=== PATIENT | female | born 1965 | race Caucasian/White ===

== ENCOUNTER 2019-03-15 17:04 | Emergency (ER) | payer MEDICAID, SELFPAY ==
[2019-03-15 17:05] VITALS: BP 158/96; PULSE 99; RESP 16; TEMP 36.6; O2SAT 99; BMI 35.4
--- NOTE | 2019-03-15 17:22 | ED.VIS.GEN ---
History of Present Illness Chief Complaint: Laceration Informant: Patient Onset: Today Current Severity: Mild Maximum Severity: Mild Narrative: Patient was using the palm of her hand to try to drive a butter knife between 2 frozen hamburger patties. She had a kitchen tile over the end of the knife. She suffered a laceration to the palm of her hand. She states she was just not take care of at home but knew that she needed a tetanus update so she came in for evaluation. She has [id number]. She denies paresthesias or weakness. - Past Medical History (1) Bipolar disorder Status: Chronic (2) PTSD (post-traumatic stress disorder) Status: Chronic Past Medical History - Allergies and Home Meds Allergies/Adverse Reactions: Allergies lamotrigine [From Lamictal] Allergy (Verified 03/15/19 17:06) Rash cephalexin monohydrate [From Keflex] Adverse Reaction (Verified 03/15/19 17:06) Other Prior records reviewed: Yes Lives: Alone Smoking Status: Current every day smoker Review of Systems General: Denies: Chills, Fever ENT: Denies: Bilateral ear pain Cardiovascular: Denies: Chest pain Respiratory: Denies: Dyspnea Gastrointestinal: Denies: Abdominal pain Musculoskeletal: Reports: Extremity Pain Skin: Reports: Wounds Neurological: Denies: Weakness, Parasthesia, Numbness Allergy: Denies: Uticaria Physical Exam Vital Signs/Narrative: Vital Signs Temp Pulse Resp BP Pulse Ox 03/15/19 17:05 98 F 99 16 158/96 H 99 Inital Vital Signs reviewed: Yes General: Well nourished, Well developed Head: Normocephalic ENT: Moist mucous membranes Neck: Supple Cardiovascular: Regular rate, Regular rhythm Respiratory: No distress, CTA bilaterally Abdomen: Soft, Nontender Extremities: - - Patient has a 1 cm long superficial laceration to the palm of her right hand. No active bleeding noted at this time. Normal neuro exam. Neurological: Normal Strength, Normal Sensation Psychological: Normal affect Diagnostic/Tx/Re-eval - Medical Decision Making Patient would prefer not to have stitches. She literally only has a laceration to the most superficial layer of skin. Wound is cleansed and closed with Dermabond. Tetanus update will be provided. ED Disposition - Plan for ED Patient: Disposition: Home or Assisted Living Diagnosis: Laceration of hand Instructions: LACERATION, Extremity (Skin Glue) Prescriptions: Acetaminophen [Tylenol Extra Strength] 500 - 1,000 mg PO Q6H PRN PRN #30 tablet PRN Reason: Pain Score 4-10/10
[2019-03-15] MEDS: Diphth,Pertuss(Acell),Tet Vac 0.5 ML Vial IM (17:31)
--- NOTE | 2019-03-17 14:35 | ED.RN ---
Pt called and requested a new rx for pain stating the tylenol was not helping. Dr Massey gave verbal order to call in Ibuprofem 600mg x1 q6hr # 20. Called to [facility].
== END 2019-03-15 17:49 | disposition home or self-care (01) ==
LOC: ED 17:28
PROVIDERS: Emergency Provider Emergency Medicine
DX: S61.411A Laceration without foreign body of right hand, initial encounter (principal); W26.0XXA Contact with knife, initial encounter; Y93.G1 Activity, food preparation and clean up; Y92.009 Unspecified place in unspecified non-institutional (private) residence as the place of occurrence of the external cause; F31.9 Bipolar disorder, unspecified; F43.10 Post-traumatic stress disorder, unspecified; F17.200 Nicotine dependence, unspecified, uncomplicated
CPT/HCPCS: 90471; 90715; 99282

== ENCOUNTER → 2019-12-22 09:08 | Outpatient (CLI) | payer MEDICAID, SELFPAY ==
[2019-12-22 09:51] LABS: Absolute Lymphocyte Count 2.46 X10^3/uL (0.83-4.51); Absolute Neutrophil Count 4.9 X10^3/uL (2.0-7.7); Basophil# 0.07 X10^3/uL; Basophil% 0.9 % (0-1); Eosinophils% 1.2 % (0-5); Hematocrit 41.1 % (37-47); Hemoglobin 12.7 g/dL (12.0-15.0); Lymphocyte # 2.46 X10^3/ul (4.0); Lymphocyte % 30.7 % (19-41); Mean Corp Hgb Conc 30.9 g/dL (32-36); Mean Corpuscular Hgb 26.6 pg (27.0-32.0); Mean Corpuscular Volume 86.2 fL (81-99); Mean Platelet Vol. 11.3 fl (6.2-12.0); Monocyte# 0.46 X10^3/uL; Monocyte% 5.7 % (0-10); NRBC Flagged by Analyzer 0 % (0-5); Neutrophil # 4.92 X10^3/uL (2.7-7.7); Neutrophil % 61.4 % (47-70); Platelet Count 278 K/mm3 (150-450); RBC Distribution Width CV 15.3 % (11.6-14.6); RBC Distribution Width SD 48.4 fl (35.1-43.9); Red Blood Count 4.77 M/mm3 (4.2-5.4)
[2019-12-22 10:41] LABS: ALB/GLOB Ratio 0.9 RATIO (0.9-2.4); AST(SGOT) 17 U/L (15-37); Alanine Aminotransfer ALT/SGPT 31 U/L (13-56); Albumin, Serum 3.1 g/dL (3.2-5.0); Alkaline Phosphatase 98 U/L (45-117); Anion Gap 6 (5-15); BUN 13 mg/dL (7-18); BUN/Creat Ratio 17.4 RATIO (10-20); Calcium,Total 8.4 mg/dL (8.5-10.1); Chloride 105 mmol/L (98-107); Creatinine, Serum 0.75 mg/dL (0.55-1.02); EST Glomerular Filtration Rate 87 mL/min (>60); Est Glom Filt Rate - Afr Amer 105 mL/min (>60); Globulin 3.6 g/dL (2.2-4.2); Glucose 255 mg/dL (74-106); Potassium 4.6 mmol/L (3.5-5.1); Protein, Total 6.7 g/dL (6.4-8.2); Sodium Level 137 mmol/L (136-145); Thyroid Stim Hormone (TSH) 2.23 uIU/mL (0.358-3.74); Valproic Acid (Depakene) Level 51 ug/mL (50-100)
== END ==
PROVIDERS: Referring Provider Registered Nurse; Visit Provider Registered Nurse
DX: F31.9 Bipolar disorder, unspecified (principal); F19.10 Other psychoactive substance abuse, uncomplicated; R53.83 Other fatigue; Z79.899 Other long term (current) drug therapy
CPT/HCPCS: 36415; 80053; 80164; 84443; 85025

== ENCOUNTER 2021-09-16 18:30 | Emergency (ER) | payer MEDICAID, SELFPAY ==
[2021-09-16 18:31] VITALS: BP 207/163; PULSE 117; RESP 20; TEMP 36.7; O2SAT 100; BMI 36.3
--- NOTE | 2021-09-16 18:39 | EX.ED.UPPERE ---
HPI History of Present Illness HPI Narrative: Left small finger laceration. Chief Complaint: Laceration Informant: patient Occured/Mechanism Mechanism/Context: Yes injury Onset/Context/Timing Onset: Today Context: Sudden Onset Timing: Continuous Current Severity: Mild Maximum Severity: Mild Associated Symptoms Associated Symptoms: Negative for Parasthesia, Weakness or Loss of Funtion Narrative Narrative: 55-year-old female [id number]. Was cutting murali for dinner. Recently lacerated the palmar aspect of her left small finger. No other injuries. She is completely unsure when her last tetanus shot was it will be updated. The injury occurred less than an hour ago. Tetanus Immunization: Unknown Prior similar symptoms: No Recent Illness/Hospitalization: No PFSH PFSH Home Medications clonazepam 1 mg tablet 1 mg PO BID 02/05/13 [History Last Taken Unknown] divalproex 500 mg tablet,delayed release (Depakote) 500 mg PO BID 02/05/13 [History Last Taken Unknown] duloxetine 60 mg capsule,delayed release 60 mg PO DAILY 02/05/13 [History Last Taken Unknown] ferrous sulfate 325 mg (65 mg iron) tablet (Iron (ferrous sulfate)) 325 mg PO BID 02/05/13 [History Last Taken Unknown] tiotropium bromide 18 mcg capsule with inhalation device (Spiriva with HandiHaler) 1 puff inhalation DAILY 02/05/13 [History Last Taken Unknown] Ibuprofen [Motrin] 800 mg PO TID PRN PRN Pain ##60 06/30/14 [Rx Last Taken Unknown] albuterol sulfate 90 mcg/actuation aerosol inhaler (Ventolin HFA) 1 puff inhalation Q4H PRN PRN Shortness Of Breath 11/18/14 [History Last Taken Unknown] naproxen 500 mg tablet 500 mg PO BID PRN ##20 11/18/14 [Rx Last Taken Unknown] omeprazole 20 mg capsule,delayed release 20 mg PO DAILY 11/18/14 [History Last Taken Unknown] acetaminophen 500 mg tablet 500 - 1,000 mg PO Q6H PRN PRN Pain Score 4-10/10 #30 tabs 03/15/19 [Rx Last Taken Unknown] Allergy/AdvReac Type Severity Reaction Status Date / Time lamotrigine [From Lamictal] Allergy Rash Verified 09/16/21 18:33 cephalexin monohydrate AdvReac Other Verified 09/16/21 18:33 [From Keflex] Social History Smoking Status: Current every day smoker ROS ROS ED ROS Narrative Denies recent illness. Review of Systems ROS Unobtainable: Denies due to encephalopathy Constitutional Constitutional ED: Denies chills Eyes Eyes: Denies blurry vision ENT ENT ED: Denies ear pain Cardiovascular Cardiovascular: Denies chest pain Respiratory/Chest Respiratory/Chest: Denies cough Gastrointestinal Gastrointestinal: Denies abdominal pain Genitourinary Genitourinary ED: Denies dysuria Musculoskeletal Musculoskeletal: Denies back pain Integumentary Denies abscess Neurologic Neurologic: Denies headache(s) Psychiatric Psychiatric: Reports anxiety Endocrine Endocrinology: Denies cold intolerance Hematologic/Lymphatic Hematologic/Lymphatic: Denies easy bleeding Allergic/Immunologic Allergic/Immunologic ED: Denies mouth swelling EXAM Physical Exam Narrative Exam Narrative: Well-appearing middle-aged female. No acute distress. Vital signs stable afebrile. Lungs are clear. Heart regular rhythm. Abdomen soft nontender. Moving all 4 extremities. Neurovascular intact. Left hand palmar aspect left small finger has about a 1 cm laceration involving the skin. There is no active bleeding. She has full flexion-extension of all digits of the left hand. Normal touch sensation. Normal cap refill. No signs of foreign body. No signs of infection. Const Vital Signs: 09/16/21 18:31 Temperature 98.0 F Temperature Source Oral Pulse Rate 117 H Respiratory Rate 20 H Blood Pressure 207/163 H Blood Pressure Mean 177 Pulse Ox 100 Oxygen Delivery Method Room Air Positive well nourished, well developed and obese; Negative for cachectic, contractures or unkempt General Appearance ED: well developed; Negative for unkempt, cachectic or contractures Nutritional Appearance: obese; Negative for cachectic HEENT Reports moist mucous membranes normocephalic; Negative for atraumatic or trauma Eyes PERRL and EOMs intact bilaterally General Eye ED: Negative for other Neck full ROM and supple Lymph Lymphatic: Negative for other Chest Wall inspection of chest normal and palpation of chest normal Resp normal respiratory effort and clear to auscultation bilaterally Effort and Inspection: Negative for pain with movement Auscultation: Negative for rales, rhonchi or wheezes Cardio regular rate, regular rhythm, S1 normal heart sound, S2 normal heart sound and no murmurs GI non-tender, non-distended and no masses Inspection: Negative for abdominal distention Auscultation: normoactive bowel sounds Palpation: soft; Negative for tender Extremity normal to inspection and full ROM Extremity Narrative: Except 1 cm laceration palmar aspect left small finger. On the proximal phalanx. Involves the skin. Currently no active bleeding. Full flexion extension. Neurovascularly intact. General Extremety ED: Negative for edema General Extremity: Negative for edema Neuro oriented x3, moves all extremities, no focal motor deficits and no sensory deficits noted Sensorium / Orientation: alert, oriented to person, oriented to place and oriented to time; Negative for orientation impaired, lethargic or stuporous Motor Exam: strength 5/5 throughout Psych mental status grossly normal Appearance: Negative for unkempt Attitude: No agitated Mood & Affect: anxious; Negative for depressed or tearful Skin General Skin Exam: Negative for petechiae Rashes: no rashes MDM MDM MDM Narrative Medical decision making narrative: 55-year-old left small finger laceration. Tetanus will be updated. Wound to be clean. Closed using Dermabond and Steri-Strips. Wound instructions will be given. Procedures Lacerations Left small finger laceration: Depth: Skin Shape: Linear Comment: Closed using Dermabond. Steri-Strips. No signs of foreign body. No signs of infection. Full range of motion. Patient tolerated procedure well. Discharge Plan Triage Chief Complaint: Laceration ED Provider: Sage Massey Dx/Rx/DC Orders Clinical Impression: Finger laceration, Bipolar disorder, PTSD (post-traumatic stress disorder) Instructions: ED Laceration, Hand: All Closures Prescriptions: No Action clonazepam 1 MG tablet 1 mg PO BID divalproex [Depakote] 500 MG Tablet.Dr 500 mg PO BID ferrous sulfate [Iron (ferrous sulfate)] 325 MG tablet 325 mg PO BID tiotropium bromide [Spiriva with HandiHaler] 1 PUFF inhaler 1 puff inhalation DAILY duloxetine 60 MG capsule 60 mg PO DAILY Ibuprofen [Motrin] 800 MG tablet 800 mg PO TID PRN PRN (Reason: Pain) Qty: 60 0RF omeprazole 20 MG capsule 20 mg PO DAILY albuterol sulfate [Ventolin HFA] 1 INHALER inhaler 1 puff inhalation Q4H PRN PRN (Reason: Shortness Of Breath) naproxen 500 MG tablet 500 mg PO BID PRN Qty: 20 0RF acetaminophen 500 MG tablet 500 - 1,000 mg PO Q6H PRN PRN (Reason: Pain Score 4-10/10) Qty: 30 0RF Primary Care Provider: Care Physician,No Primary Referrals: Care Physician,No Primary [Primary Care Provider] - Activity Restrictions/Additional Instructions: Do not remove the Steri-Strips for at least 1 week. Any signs of infection return such as pus, redness, swelling or fever. Disposition Disposition: Home, Self Care
== END 2021-09-16 19:02 | disposition home or self-care (01) ==
PROVIDERS: Emergency Provider Emergency Medicine; PCP Internal Medicine; Visit Provider Emergency Medicine
DX: S61.217A Laceration without foreign body of left little finger without damage to nail, initial encounter (principal); F17.200 Nicotine dependence, unspecified, uncomplicated; E66.9 Obesity, unspecified; X58.XXXA Exposure to other specified factors, initial encounter
CPT/HCPCS: 12001; 99282

== ENCOUNTER 2021-10-26 18:18 | Emergency (ER) | payer MEDICAID, SELFPAY ==
[2021-10-26 18:19] VITALS: BP 136/98; PULSE 88; RESP 20; TEMP 37.4; O2SAT 98; BMI 35.5
--- NOTE | 2021-10-26 18:28 | EX.ED.GENINJ ---
HPI History of Present Illness Chief Complaint: Fall Detail of Chief Complaint: Fall with injury to left ankle Informant: patient Narrative Narrative: Patient presents the emergency department after sustaining a fall today. Patient was coming outside of her home and is not sure if she missed the last step or her leg gave out but she fell injuring her left ankle. Patient states she may have broken it. She try to stand on it but then was having too much pain. She denies any other injuries. [facility] Medical History (Updated 10/26/21 @ 18:[address] Meghan Molina, ) Asthma Bipolar 1 disorder COPD (chronic obstructive pulmonary disease) Degenerative disc disease Home Medications clonazepam 1 mg tablet 1 mg PO BID 02/05/13 [History Last Taken Unknown] divalproex 500 mg tablet,delayed release (Depakote) 500 mg PO BID 02/05/13 [History Last Taken Unknown] duloxetine 60 mg capsule,delayed release 60 mg PO DAILY 02/05/13 [History Last Taken Unknown] ferrous sulfate 325 mg (65 mg iron) tablet (Iron (ferrous sulfate)) 325 mg PO BID 02/05/13 [History Last Taken Unknown] tiotropium bromide 18 mcg capsule with inhalation device (Spiriva with HandiHaler) 1 puff inhalation DAILY 02/05/13 [History Last Taken Unknown] Ibuprofen [Motrin] 800 mg PO TID PRN PRN Pain #60 tabs 06/30/14 [Rx Last Taken Unknown] albuterol sulfate 90 mcg/actuation aerosol inhaler (Ventolin HFA) 1 puff inhalation Q4H PRN PRN Shortness Of Breath 11/18/14 [History Last Taken Unknown] naproxen 500 mg tablet 500 mg PO BID PRN #20 tabs 11/18/14 [Rx Last Taken Unknown] omeprazole 20 mg capsule,delayed release 20 mg PO DAILY 11/18/14 [History Last Taken Unknown] acetaminophen 500 mg tablet 500 - 1,000 mg PO Q6H PRN PRN Pain Score 4-10/10 #30 tabs 03/15/19 [Rx Last Taken Unknown] hydrocodone-acetaminophen 5-325mg 5mg-325mg 1 tab PO Q4H PRN PRN Pain 2 days #6 TABLETS 10/26/21 [Rx Last Taken Unknown] naproxen 500 mg tablet 500 mg PO BID #14 tabs 10/26/21 [Rx Last Taken Unknown] Allergy/AdvReac Type Severity Reaction Status Date / Time lamotrigine [From Lamictal] Allergy Rash Verified 09/16/21 18:33 cephalexin monohydrate AdvReac Other Verified 09/16/21 18:33 [From Keflex] Social History Smoking Status: Current every day smoker tobacco type: cigarettes ROS ROS ED Review of Systems ROS Unobtainable: other Constitutional Constitutional ED: Reports lethargy; Denies chills, fever(s), sweats or weight loss Eyes Eyes: Denies blurry vision, change in vision or diplopia ENT ENT ED: Denies rhinorrhea or sore throat Cardiovascular Cardiovascular: Reports chest pain and racing heartbeat; Denies orthopnea Respiratory/Chest Respiratory/Chest: Reports dyspnea and dyspnea on exertion; Denies cough, orthopnea or sputum Gastrointestinal Gastrointestinal: Denies abdominal pain, diarrhea, nausea or vomiting Genitourinary Genitourinary ED: Denies dysuria, hematuria or urinary frequency Musculoskeletal Musculoskeletal: Reports other Details: Left ankle pain/injury ; Denies arthralgias, back pain, myalgias or neck pain Integumentary Denies abscess, Abrasions or rash Neurologic Neurologic: Denies headache(s) or weakness Psychiatric Psychiatric: Denies anxiety, depression or suicidal thoughts Endocrine Endocrinology: Denies polydipsia, polyphagia or polyuria Hematologic/Lymphatic Hematologic/Lymphatic: Denies easy bleeding, easy bruising or lymphadenopathy Allergic/Immunologic Allergic/Immunologic ED: Denies mouth swelling, tongue swelling or urticaria EXAM Physical Exam Const Vital Signs: 10/26/21 18:19 10/26/21 18:19 Temperature 99.3 F H Temperature Source Oral Pulse Rate 88 Respiratory Rate 20 H Blood Pressure 136/98 H Blood Pressure Mean 110 Pulse Ox 98 Oxygen Delivery Method Room Air Room Air Positive well nourished and well developed General Appearance ED: well developed and NAD HEENT Reports TM's clear and moist mucous membranes normocephalic and atraumatic; Negative for trauma or tenderness Tympanic Membrane ED: Yes TM's clear Eyes PERRL and EOMs intact bilaterally General Eye ED: Negative for pale conjunctiva or scleral icterus Neck no lymphadenopathy, supple and no JVD General: Negative for tenderness Chest Wall inspection of chest normal and palpation of chest normal Chest: Negative for tenderness Resp normal respiratory effort and clear to auscultation bilaterally Effort and Inspection: Negative for respiratory distress or pain with movement Auscultation: Negative for rhonchi, wheezes or diminished lung sounds Cardio regular rate, regular rhythm, S1 normal heart sound, S2 normal heart sound and no murmurs Peripheral Pulses: pulses 2+ throughout GI normal to inspection, nondistended, normoactive bowel sounds, soft to palpation, non-tender, non-distended and no masses Back/Spine no CVA tenderness and no thoracic nor lumbar tenderness Extremity Extremity Narrative: Patient with some mild bruising to both knees anteriorly. No bony tenderness to the knees. Patient does have soft tissue swelling over the left lateral malleolus with tenderness to palpation. No pain at the proximal fibular head. No pain at the base of the fifth metatarsal. She is neurovascular intact distally. No open skin or lacerations noted. General Extremety ED: Negative for edema General Extremity: Negative for edema Neuro oriented x3, CN's II-XII intact bilaterally, no sensory deficits noted and gait normal Sensorium / Orientation: awake, alert, oriented to person, oriented to place and oriented to time Motor Exam: strength 5/5 throughout and strength abnormal Psych mental status grossly normal Skin no rashes or lesions noted and no wounds MDM MDM MDM Narrative Medical decision making narrative: Patient will be given an air splint and she did not want crutches she wanted to try a walker. Patient to follow-up with her primary care physician in 5 to 7 days. I did give her 1 [place] for pain. Patient to ice and elevate the extremity. Radiography Diagnostic Testing: Three-view x-rays of the left ankle obtained interpreted by myself as no acute fractures. She did have an old avulsion fracture of the medial malleolus. Official report from radiology pending. Discharge Plan Triage Chief Complaint: Fall ED Provider: Meghan Molina Dx/Rx/DC Orders Clinical Impression: Left ankle sprain Instructions: ED Mechanical Fall, ED Ankle Sprain (Adult) Prescriptions: New hydrocodone-acetaminophen [hydrocodone-acetaminophen] 1 TABLET tablet 1 tab PO Q4H PRN PRN (Reason: Pain) 2 Days Qty: 6 0RF naproxen 500 MG tablet 500 mg PO BID Qty: 14 0RF No Action clonazepam 1 MG tablet 1 mg PO BID divalproex [Depakote] 500 MG tablet,delayed release (DR/EC) 500 mg PO BID ferrous sulfate [Iron (ferrous sulfate)] 325 MG tablet 325 mg PO BID tiotropium bromide [Spiriva with HandiHaler] 1 PUFF inhaler 1 puff inhalation DAILY duloxetine 60 MG capsule 60 mg PO DAILY Ibuprofen [Motrin] 800 MG tablet 800 mg PO TID PRN PRN (Reason: Pain) Qty: 60 0RF omeprazole 20 MG capsule 20 mg PO DAILY albuterol sulfate [Ventolin HFA] 1 INHALER inhaler 1 puff inhalation Q4H PRN PRN (Reason: Shortness Of Breath) naproxen 500 MG tablet 500 mg PO BID PRN Qty: 20 0RF acetaminophen 500 MG tablet 500 - 1,000 mg PO Q6H PRN PRN (Reason: Pain Score 4-10/10) Qty: 30 0RF Primary Care Provider: Renetta Bagley Referrals: Renetta Bagley MD [Primary Care Provider] - Disposition Disposition: Home, Self Care
--- NOTE | 2021-10-26 18:30 | RAD_ITS ---
STUDY: X-RAY - LEFT ANKLE REASON FOR EXAM: Female, 55 years old. injury TECHNIQUE: 3 view(s) of the ankle. COMPARISON: None. FINDINGS: Normal visualized distal tibia and fibula. Chronic corticated avulsion fracture of the medial malleolus the tibia. Normal tibiotalar articulation and ankle mortise. Normal visualized talus and calcaneus. Tiny plantar posterior calcaneal enthesophytes. The visualized subtalar, talonavicular, calcaneocuboid and tarsal articulations are normal. The soft tissue structures are unremarkable. RAD/Ankle min 3 Views IMPRESSION: No acute fracture or dislocation. Electronically Signed: Iván Chahal MD at 18:56 EDT ,
[2021-10-26] MEDS: HYDROcodone Bitartrate/Apap 5/325 Tablet PO (18:44)
== END 2021-10-26 19:46 | disposition home or self-care (01) ==
LOC: ED 18:39
PROVIDERS: Emergency Provider Emergency Medicine; PCP Internal Medicine; Visit Provider Emergency Medicine
DX: S93.402A Sprain of unspecified ligament of left ankle, initial encounter (principal); W19.XXXA Unspecified fall, initial encounter; Y92.009 Unspecified place in unspecified non-institutional (private) residence as the place of occurrence of the external cause; F17.210 Nicotine dependence, cigarettes, uncomplicated
CPT/HCPCS: 73610; 99285

== ENCOUNTER 2022-02-07 22:28 | Emergency (ER) | payer MEDICAID, SELFPAY ==
[2022-02-07 22:29] VITALS: BP 114/64; PULSE 96; RESP 16; TEMP 36.3; O2SAT 98; BMI 32.4
--- NOTE | 2022-02-07 22:39 | RAD_ITS ---
EXAM: XR LUMBOSACRAL SPINE, 2 OR 3 VIEWS CLINICAL INDICATION: back pain TECHNIQUE: Frontal and lateral views of the lumbar spine and sacrum. This report was created using [employer] report generation technology. COMPARISON: None. FINDINGS: VERTEBRAE: No acute or healing fracture or spondylolisthesis. Preservation of the normal lumbar lordosis. No significant facet arthropathy. DISC SPACES: Up to moderate degenerative changes of the spine. GASTROINTESTINAL TRACT: Unremarkable as visualized. Included bowel gas pattern is non-obstructive. Atherosclerotic calcifications of the nonaneurysmal abdominal aorta. RAD/Lumbar Spine 2 or 3 Views IMPRESSION: 1. Up to moderate degenerative changes of the spine. 2. No acute or healing fracture or spondylolisthesis. Electronically Signed: Yasir Barrientos MD at 23:25 EST ,
--- NOTE | 2022-02-07 22:40 | EDS_ITS ---
HPI History of Present Illness Chief Complaint: Fall Narrative Narrative: 56-year-old female presenting with left-sided back pain and left hip pain. She states she had a mechanical fall 2 days ago while going down the stairs. She states she fell backwards on her buttocks and slid down 4 steps. She states she had trouble getting up and was assisted to the bedroom. She took 1 ibuprofen 800 mg last evening which she states helped. She has not taking any other medication. She has not noted any bruising. No loss of bladder or bowel control. No saddle anesthesia. She does admit to a history of back problems. [facility] Medical History Asthma Bipolar 1 disorder COPD (chronic obstructive pulmonary disease) Degenerative disc disease Home Medications clonazepam 1 mg tablet 1 mg PO BID 02/05/13 [History Last Taken Unknown] divalproex 500 mg tablet,delayed release (Depakote) 500 mg PO BID 02/05/13 [History Last Taken Unknown] duloxetine 60 mg capsule,delayed release 60 mg PO DAILY 02/05/13 [History Last Taken Unknown] ferrous sulfate 325 mg (65 mg iron) tablet (Iron (ferrous sulfate)) 325 mg PO BID 02/05/13 [History Last Taken Unknown] tiotropium bromide 18 mcg capsule with inhalation device (Spiriva with HandiHaler) 1 puff inhalation DAILY 02/05/13 [History Last Taken Unknown] Ibuprofen [Motrin] 800 mg PO TID PRN PRN Pain #60 tabs 06/30/14 [Rx Last Taken Unknown] albuterol sulfate 90 mcg/actuation aerosol inhaler (Ventolin HFA) 1 puff inhalation Q4H PRN PRN Shortness Of Breath 11/18/14 [History Last Taken Unknown] naproxen 500 mg tablet 500 mg PO BID PRN #20 tabs 11/18/14 [Rx Last Taken Unknown] omeprazole 20 mg capsule,delayed release 20 mg PO DAILY 11/18/14 [History Last Taken Unknown] acetaminophen 500 mg tablet 500 - 1,000 mg PO Q6H PRN PRN Pain Score 4-10/10 #30 tabs 03/15/19 [Rx Last Taken Unknown] hydrocodone-acetaminophen 5-325mg 5mg-325mg 1 tab PO Q4H PRN PRN Pain 2 days #6 TABLETS 10/26/21 [Rx Last Taken Unknown] naproxen 500 mg tablet 500 mg PO BID #14 tabs 10/26/21 [Rx Last Taken Unknown] cyclobenzaprine 10 mg tablet 10 mg PO BID PRN muscle spasm #14 tabs 02/07/22 [Rx Last Taken Unknown] naproxen 500 mg tablet (Naprosyn) 500 mg PO BID PRN pain #20 tabs 02/07/22 [Rx Last Taken Unknown] Allergy/AdvReac Type Severity Reaction Status Date / Time lamotrigine [From Lamictal] Allergy Rash Verified 02/07/22 22:29 cephalexin monohydrate AdvReac Other Verified 02/07/22 22:29 [From Keflex] Social History Smoking Status: Current every day smoker tobacco type: cigarettes ROS ROS ED Constitutional Constitutional ED: Denies chills or fever(s) Eyes Eyes: Denies change in vision or diplopia ENT ENT ED: Denies rhinorrhea or sore throat Cardiovascular Cardiovascular: Denies chest pain or palpitations Respiratory/Chest Respiratory/Chest: Denies dyspnea or dyspnea on exertion Gastrointestinal Gastrointestinal: Denies abdominal pain Genitourinary Genitourinary ED: Denies dysuria or hematuria Musculoskeletal Musculoskeletal: Reports back pain and other Details: Left hip pain Integumentary Denies abscess Neurologic Neurologic: Denies headache(s) or paresthesias Psychiatric Psychiatric: Denies anxiety or depression EXAM Physical Exam Const Vital Signs: 02/07/22 22:29 Temperature 97.3 F L Temperature Source Temporal Pulse Rate 96 Respiratory Rate 16 Blood Pressure 114/64 Blood Pressure Mean 80 Pulse Ox 98 Oxygen Delivery Method Room Air Positive well nourished General Appearance ED: NAD; Negative for pallor HEENT Reports moist mucous membranes Eyes PERRL and EOMs intact bilaterally Resp normal respiratory effort Auscultation: Negative for rales, rhonchi or wheezes Cardio regular rate and regular rhythm GI normal to inspection, nondistended, normoactive bowel sounds Back/Spine Back/Spine Narrative: Tenderness to palpation over the left paraspinal musculature in the lumbar region. There is no midline spinal tenderness, deformity, step-off there is pain on palpation of the left hip. Patient is ambulatory with antalgic gait. Extremity normal to inspection Neuro oriented x3 Motor Exam: strength 5/5 throughout Psych mental status grossly normal Skin no rashes or lesions noted General Skin Exam: Negative for jaundice or pallor MDM MDM MDM Narrative Medical decision making narrative: Given Norflex and Toradol. I obtained images of the lumbar spine and left hip. On my interpretation there are no acute fractures. There are degenerative changes. The radiologist are persistent and agrees. Patient will be given prescription for Flexeril and Naprosyn. She is to follow-up with her PCP to ensure resolution. Impression: 1. Mechanical fall 2. Back contusion 3. Lumbar strain Radiography Diagnostic Testing: Clinical Impression(s) from Imaging Studies Lumbar Spine X-Ray 02/07/22 22:39 IMPRESSION: 1. Up to moderate degenerative changes of the spine. 2. No acute or healing fracture or spondylolisthesis. Electronically Signed: Yasir Barrientos MD at 23:25 EST , Hip/Pelvis X-Ray 02/07/22 23:00 IMPRESSION: 1. No acute or healing fracture or malalignment. 2. Mviy-ps-[id number] hip osteoarthrosis bilaterally. Electronically Signed: Yasir Barrientos MD at 23:27 EST , Discharge Plan Triage Chief Complaint: Fall ED Provider: Sg Valera Dx/Rx/DC Orders Instructions: ED Back Contusion, ED Muscle Spasm Prescriptions: New naproxen [Naprosyn] 500 mg tablet 500 mg PO BID PRN (Reason: pain) Qty: 20 0RF cyclobenzaprine 10 mg tablet 10 mg PO BID PRN (Reason: muscle spasm) Qty: 14 0RF No Action clonazepam 1 MG tablet 1 mg PO BID divalproex [Depakote] 500 MG tablet,delayed release (DR/EC) 500 mg PO BID ferrous sulfate [Iron (ferrous sulfate)] 325 MG tablet 325 mg PO BID tiotropium bromide [Spiriva with HandiHaler] 1 PUFF inhaler 1 puff inhalation DAILY duloxetine 60 MG capsule 60 mg PO DAILY Ibuprofen [Motrin] 800 MG tablet 800 mg PO TID PRN PRN (Reason: Pain) Qty: 60 0RF omeprazole 20 MG capsule 20 mg PO DAILY albuterol sulfate [Ventolin HFA] 1 INHALER inhaler 1 puff inhalation Q4H PRN PRN (Reason: Shortness Of Breath) naproxen 500 MG tablet 500 mg PO BID PRN Qty: 20 0RF acetaminophen 500 MG tablet 500 - 1,000 mg PO Q6H PRN PRN (Reason: Pain Score 4-10/10) Qty: 30 0RF hydrocodone-acetaminophen [hydrocodone-acetaminophen] 1 TABLET tablet 1 tab PO Q4H PRN PRN (Reason: Pain) 2 Days Qty: 6 0RF naproxen 500 MG tablet 500 mg PO BID Qty: 14 0RF Primary Care Provider: Renetta Bagley Referrals: Renetta Bagley MD [Primary Care Provider] - Disposition Disposition: Home, Self Care
[2022-02-07] MEDS: Orphenadrine 60 MG/2 ML Ampul IM (22:44)
[2022-02-07] MEDS: Ketorolac 15 MG/ML Vial IM (22:44)
--- NOTE | 2022-02-07 23:00 | RAD_ITS ---
EXAM: XR LEFT HIP WITH PELVIS WHEN PERFORMED, 1 VIEW CLINICAL INDICATION: pain TECHNIQUE: Frontal view of the left hip with pelvis when performed. This report was created using [employer] report generation technology. COMPARISON: None. FINDINGS: BONES/JOINTS: Axnl-sl-[id number] hip osteoarthrosis bilaterally. Enthesopathy at the left greater trochanter. Small bone island at the left ischial tuberosity. Degenerative changes of the lower lumbar spine. No displaced fracture. No destructive or sclerotic lesions. Note that overlapping bowel shadows may however obscure fine detail. Sacroiliac joint is unremarkable. No widening of the pubic symphysis. SOFT TISSUES: Unremarkable. No soft tissue swelling or gas. RAD/HIP, UNI W/ Pelvis 2-3 Views IMPRESSION: 1. No acute or healing fracture or malalignment. 2. Wsxv-jj-hutazjpk hip osteoarthrosis bilaterally. Electronically Signed: Yasir Barrientos MD at 23:27 EST ,
== END 2022-02-07 23:41 | disposition home or self-care (01) ==
PROVIDERS: Emergency Provider Student in an Organized Health Care Education/Training Program; PCP Internal Medicine; Visit Provider Student in an Organized Health Care Education/Training Program
DX: S39.012A Strain of muscle, fascia and tendon of lower back, initial encounter (principal); J44.9 Chronic obstructive pulmonary disease, unspecified; F17.210 Nicotine dependence, cigarettes, uncomplicated; M25.552 Pain in left hip; W10.9XXA Fall (on) (from) unspecified stairs and steps, initial encounter
CPT/HCPCS: 72100; 73502; 96372; 99282

== ENCOUNTER 2023-08-04 01:46 | Emergency (ER) | payer MEDICAID, SELFPAY ==
[2023-08-04 01:48] VITALS: BP 150/85; PULSE 96; RESP 17; TEMP 36.4; O2SAT 98; BMI 35.6
--- NOTE | 2023-08-04 02:33 | EDS_ITS ---
HPI History of Present Illness Chief Complaint: Rash Informant: patient Narrative Narrative: Patient is a 57-year-old female with past medical history of bipolar disorder as well as COPD. She states she has had the skin lesions for multiple months and is scheduled to see a peripheral vascular tech and agricultural technical officer at the end of August. She reports that she has been worked up at outside facilities with blood work and different testing that did not reveal any obvious cause for her rash. She states that she was placed on prednisone previously which did help resolve the rash but once it was finished the rash returned. She states has been no new exposures and she states no one else at home has a rash. However it does seem like it has been worsening over the last few days and secondary to this she presents for evaluation [facility] Medical History Degenerative disc disease Asthma COPD (chronic obstructive pulmonary disease) Bipolar 1 disorder Home Medications ?Medication ?Instructions ?Recorded ?Last Taken ?Type clonazepam 1 mg tablet 1 mg PO BID 02/05/13 Unknown History divalproex 500 mg tablet,delayed 500 mg PO BID 02/05/13 Unknown History release (Depakote) duloxetine 60 mg capsule,delayed 60 mg PO DAILY 02/05/13 Unknown History release ferrous sulfate 325 mg (65 mg 325 mg PO BID 02/05/13 Unknown History iron) tablet (Iron (ferrous sulfate)) tiotropium bromide 18 mcg capsule 2 puff inhalation DAILY 02/05/13 Unknown History with inhalation device (Spiriva with HandiHaler) Ibuprofen [Motrin] 800 mg PO TID PRN PRN Pain #60 tabs 06/30/14 Unknown Rx albuterol sulfate 90 mcg/actuation 1 puff inhalation Q4H PRN PRN 11/18/14 Unk nown History aerosol inhaler (Ventolin HFA) Shortness Of Breath naproxen 500 mg tablet 500 mg PO BID PRN #20 tabs 11/18/14 Unknown Rx omeprazole 20 mg capsule,delayed 20 mg PO DAILY 11/18/14 Unknown History release acetaminophen 500 mg tablet 500 - 1,000 mg (1 - 2 x 500 mg) PO 03/15/19 Unknown Rx Q6H PRN PRN Pain Score 4-10/10 #30 tabs hydrocodone-acetaminophen 5-325mg 1 tab PO Q4H PRN PRN Pain 2 days 10/26/21 Unknown Rx 5mg-325mg #6 TABLETS naproxen 500 mg tablet 500 mg PO BID #14 tabs 10/26/21 Unknown Rx cyclobenzaprine 10 mg tablet 10 mg PO BID PRN muscle spasm #14 02/07/22 Unknown Rx tabs ibuprofen 600 mg tablet 600 mg PO Q8H PRN PRN pain #30 tabs 02/07/22 Unknown Rx clobetasol 0.05 %-levocetirizine 2 See Rx Instructions .Route 08/04/23 Unknown Rx % shampoo .COMPLEX #120 mL prednisone 10 mg tablet 10 mg PO DAILY #45 TABLETS 08/04/23 Unknown Rx Allergy/AdvReac Type Severity Reaction Status Date / Time lamotrigine (From Lamictal) Allergy Rash Verified 08/04/23 01:47 cephalexin monohydrate (From AdvReac Other Verified 08/04/23 01:47 Keflex) Social History Smoking Status: Current every day smoker tobacco type: cigarettes ROS ROS ED Constitutional Constitutional ED: Denies chills or fever(s) ENT ENT ED: Denies sore throat Cardiovascular Cardiovascular: Denies chest pain Respiratory/Chest Respiratory/Chest: Denies cough or dyspnea Gastrointestinal Gastrointestinal: Denies abdominal pain, diarrhea, nausea or vomiting Genitourinary Genitourinary ED: Denies dysuria Musculoskeletal Musculoskeletal: Denies myalgias Integumentary Reports pruritus and rash Neurologic Neurologic: Denies headache(s) Hematologic/Lymphatic Hematologic/Lymphatic: Denies easy bleeding or easy bruising EXAM Physical Exam Const Vital Signs: 08/04/23 01:48 Temperature 97.6 F L Temperature Source Temporal Pulse Rate 96 Respiratory Rate 17 Blood Pressure 150/85 H Blood Pressure Mean 106 Pulse Ox 98 Oxygen Delivery Method Room Air Positive well nourished, well developed and obese General Appearance ED: well developed Nutritional Appearance: obese HEENT Reports moist mucous membranes HEENT Narrative: No tongue or lip swelling no oral lesions no airway edema or compromise Eyes PERRL and EOMs intact bilaterally Neck full ROM, No nuchal rigidity and supple Resp normal respiratory effort and clear to auscultation bilaterally Cardio regular rate and regular rhythm Extremity normal to inspection, full ROM and normal capillary refill Neuro oriented x3, CN's II-XII intact bilaterally, moves all extremities and no focal motor deficits Sensorium / Orientation: alert Meningeal Signs: no meningeal signs Psych Psych Narrative: Patient has a nervous/anxious affect without homicidal or suicidal ideation Skin Skin Narrative: Patient has multiple circular erythematous blanchable and excoriated lesions that extend from her scalp down to her feet. However there is no involvement of the palms or soles. No abscess formation or cellulitis noted. MDM MDM MDM Narrative Medical decision making narrative: Patient arrived to the ER hypertensive but otherwise with stable vitals. She reported a longstanding history of this rash and states has been worked up at outside facilities with no obvious cause in the past. Differential diagnosis is for atopic dermatitis versus nummular eczema versus scabies versus acute al lergic reaction. The patient states has been no new exposures and therefore I have low concern this is an allergic reaction. She has not have any lesions in her web spacing and they do cross the neckline into the head going against scabies. Also no one else at home has a rash. At this time based on his persistent nature and response to steroids I do feel this is most likely atopic dermatitis. She does not have signs of secondary infection she is not in respiratory distress and therefore there is no need for workup. Patient replaced on a prednisone taper and is otherwise safe for discharge History & Record Review Discussion w/independent historian: Patient Discharge Plan Triage Chief Complaint: Rash ED Provider: Yasir Lazo Dx/Rx/DC Orders Clinical Impression: Atopic dermatitis, Bipolar disorder, COPD (chronic obstructive pulmonary disease) Instructions: What Is Atopic Dermatitis? Prescriptions: New prednisone 10 mg tablet 10 mg PO DAILY Qty: 45 0RF Rx Instructions: 5 po qd x 3 days, 4 po qd x 3 days, 2 po qd x 3 days, 1 po qd x 3 days clobetasol-levocetirizine 0.05-2 % shampoo See Rx Instructions .ROUTE .COMPLEX Qty: 120 1RF Rx Instructions: Apply a thin film to your dry scalp daily. Leave in place for 15 minutes then add water lather and rinse thoroughly. Limit treatment to 4 weeks No Action clonazepam 1 MG tablet 1 mg PO BID divalproex [Depakote] 500 MG tablet,delayed release (DR/EC) 500 mg PO BID ferrous sulfate [Iron (ferrous sulfate)] 325 MG tablet 325 mg PO BID tiotropium bromide [Spiriva with HandiHaler] 1 PUFF inhaler 2 puff inhalation DAILY duloxetine 60 MG capsule 60 mg PO DAILY Ibuprofen [Motrin] 800 MG tablet 800 mg PO TID PRN PRN (Reason: Pain) Qty: 60 0RF omeprazole 20 MG capsule 20 mg PO DAILY albuterol sulfate [Ventolin HFA] 1 INHALER inhaler 1 puff inhalation Q4H PRN PRN (Reason: Shortness Of Breath) naproxen 500 MG tablet 500 mg PO BID PRN Qty: 20 0RF acetaminophen 500 MG tablet 500 - 1,000 mg PO Q6H PRN PRN (Reason: Pain Score 4-10/10) Qty: 30 0RF hydrocodone-acetaminophen [hydrocodone-acetaminophen] 1 TABLET tablet 1 tab PO Q4H PRN PRN (Reason: Pain) 2 Days Qty: 6 0RF naproxen 500 MG tablet 500 mg PO BID Qty: 14 0RF cyclobenzaprine 10 mg tablet 10 mg PO BID PRN (Reason: muscle spasm) Qty: 14 0RF ibuprofen 600 mg tablet 600 mg PO Q8H PRN PRN (Reason: pain) Qty: 30 0RF Primary Care Provider: Santi Blanc,Out of Referrals: Sami Bauer MD [Med Staff - Administrative Clerk] - [facility] Doctor,Out of [Primary Care Provider] - Activity Restrictions/Additional Instructions: Use the prescribed medication as directed to help control your symptoms and follow-up with dermatology for repeat evaluation. Return to the ER should you have any further concerns Print Language: Japanese Disposition Disposition: Home, Self Care
[2023-08-04] MEDS: Famotidine 20 MG Tablet 40 MG PO (02:51)
[2023-08-04] MEDS: predniSONE 20 MG Tablet 60 MG PO (02:51)
[2023-08-04 02:53] VITALS: BP 142/71; PULSE 79; RESP 16; TEMP 36.6; O2SAT 97
== END 2023-08-04 02:54 | disposition home or self-care (01) ==
PROVIDERS: Emergency Provider Emergency Medicine; Visit Provider Emergency Medicine
DX: L20.9 Atopic dermatitis, unspecified (principal); F31.9 Bipolar disorder, unspecified; J44.9 Chronic obstructive pulmonary disease, unspecified; F17.210 Nicotine dependence, cigarettes, uncomplicated; Z79.899 Other long term (current) drug therapy
CPT/HCPCS: 99283

== ENCOUNTER 2023-09-12 06:49 | Emergency (ER) | payer MEDICAID, SELFPAY ==
[2023-09-12 06:51] VITALS: BP 152/82; PULSE 89; RESP 24; TEMP 36.9; O2SAT 98; BMI 37.4
--- NOTE | 2023-09-12 07:13 | EDS_ITS ---
HPI History of Present Illness Chief Complaint: Rash Detail of Chief Complaint: Pruritic weepy rash Informant: patient and family Onset/Context/Timing Onset: Weeks Context: Sudden Onset Timing: Continuous and Waxes and wanes Quality: Pleuritic, erythematous, weepy with crusting Location: Upper and lower extremities predominantly Current Severity: Moderate Maximum Severity: Severe Worsened by: Itching Relieved by: Prednisone Associated Symptoms Associated Symptoms: No constitutional symptoms Narrative Narrative: Patient is a 57-year-old woman. She is appears very anxious. She states she has been seen at multiple emergency rooms. She states that her family has told her not to pick at her skin. She was seen at [facility] since hospital. She had test for STI including syphilis since her significant other is a drug dealer . She states when she was given prednisone cream for the rash on her left forearm she had improvement. She was placed on systemic steroids and had improvement. She was frightened because relative told her that she has cellulitis. She denies fever, chills night sweats. Patient denies HEENT, respiratory, cardiac or GI symptoms. Patient did make comment if she is placed on antibiotic she needs Diflucan because she developed a yeast infection. Patient states the lesions on her legs are new. They are paretic. She has been picking at them. Prior similar symptoms: Yes Recent Illness/Hospitalization: Yes [facility] Medical History Degenerative disc disease Asthma COPD (chronic obstructive pulmonary disease) Bipolar 1 disorder Home Medications ?Medication ?Instructions ?Recorded ?Last Taken ?Type divalproex 500 mg tablet,delayed 500 mg PO BID 02/05/13 Unknown History release (Depakote) albuterol sulfate 90 mcg/actuation 1 puff inhalation Q4H PRN PRN 11/18/14 Unknown History aerosol inhaler (Ventolin HFA) Shortness Of Breath omeprazole 20 mg capsule,delayed 20 mg PO DAILY 11/18/14 Unknown History release famotidine 20 mg tablet 20 mg PO BID #10 TABLETS 09/12/23 Unknown Rx hydroxyzine HCl 10 mg tablet 10 mg PO Q6H #20 tabs 09/12/23 Unknown Rx prednisone 10 mg tablet 10 mg PO UD #33 tabs 09/12/23 Unknown Rx Allergy/AdvReac Type Severity Reaction Status Date / Time lamotrigine (From Lamictal) Allergy Rash Verified 08/04/23 01:47 cephalexin monohydrate (From AdvReac Other Verified 08/04/23 01:47 Keflex) Social History (Updated 09/12/23 @ 07:[address] Darnell Robbins MD) household members: significant other Smoking Status: Current every day smoker tobacco type: cigarettes and e-cigarettes ROS ROS ED Constitutional Constitutional ED: Denies chills, fever(s), subjective, sweats or weight loss Eyes Eyes: Denies blurry vision or change in vision ENT ENT ED: Denies rhinorrhea or sore throat Cardiovascular Cardiovascular: Denies chest pain or palpitations Respiratory/Chest Respiratory/Chest: Denies cough, dyspnea or dyspnea on exertion Gastrointestinal Gastrointestinal: Denies diarrhea, nausea or vomiting Musculoskeletal Musculoskeletal: Denies arthralgias or myalgias Integumentary Reports rash; Denies abscess or Abrasions Psychiatric Psychiatric: Reports anxiety Hematologic/Lymphatic Hematologic/Lymphatic: Reports systems reviewed and no addt'l complaints, except as documented EXAM Physical Exam Const Vital Signs: 09/12/23 06:51 Temperature 98.4 F Temperature Source Oral Pulse Rate 89 Respiratory Rate 24 H Blood Pressure 152/82 H Blood Pressure Mean 105 Pulse Ox 98 Oxygen Delivery Method Room Air Positive well nourished, well developed and unkempt General Appearance ED: unkempt, well developed and NAD; Negative for cyanotic, diaphoretic or pallor HEENT Reports moist mucous membranes HEENT Narrative: Head is atraumatic and normocephalic. Ears are normal. Eyes PERRL and EOMs intact bilaterally General Eye ED: Negative for pale conjunctiva or scleral icterus Neck no lymphadenopathy, supple and no JVD Chest Wall inspection of chest normal and palpation of chest normal Resp normal respiratory effort and clear to auscultation bilaterally Cardio regular rate, regular rhythm, S1 normal heart sound, S2 normal heart sound and no murmurs Extremity Negative for normal to inspection Extremity Narrative: Patient has what appears to be a contact dermatitis on the volar surface of her right arm and resolving dermatitis volar surface of the left arm. She has now new lesions on her legs. There are multiple areas where she has picked. There is no evidence of cellulitis i.e. warmth, induration, lymphangitis and there is no inguinal or axillary lymphadenopathy. Neuro oriented x3 and CN's II-XII intact bilaterally Psych Psych Narrative: Patient is fidgety. She cannot keep still. She has spastic like movements. 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 General Skin Exam: elasticity normal; Negative for jaundice or pallor MDM MDM MDM Narrative Medical decision making narrative: Will treat her itching with Atarax and the rash with Pepcid and prednisone. The Pepcid will help with the itching as well. There is no concern for cellulitis. She has been informed that she needs to stop picking at her skin because this may lead to an infection. History & Record Review Additional record(s) reviewed:: Prior outpatient record (Seen at [facility] per [facility] and reviewed records.) Discharge Plan Triage Chief Complaint: Rash ED Provider: Darnell Robbins Dx/Rx/DC Orders Clinical Impression: Contact dermatitis, Dermatillomania in adult, Elevated blood-pressure reading, without diagnosis of hypertension Instructions: ED Contact Dermatitis, ED Hypertension, To Be Confirmed Prescriptions: New prednisone 10 mg tablet 10 mg PO UD Qty: 33 0RF Rx Instructions: Take 4 tablets daily for 3 days, then 3 daily for 3 days, then 2 daily for 3 days, then 1 a day for 3 days then 1 QOD for 3 doses. famotidine 20 mg tablet 20 mg PO BID Qty: 10 0RF hydroxyzine HCl 10 mg tablet 10 mg PO Q6H Qty: 20 0RF No Action divalproex [Depakote] 500 MG tablet,delayed release (DR/EC) 500 mg PO BID omeprazole 20 MG capsule 20 mg PO DAILY albuterol sulfate [Ventolin HFA] 1 INHALER inhaler 1 puff inhalation Q4H PRN PRN (Reason: Shortness Of Breath) Primary Care Provider: [facility] Doctor,Out of Referrals: [facility] Doctor,Out of [Primary Care Provider] - 1 Week if not improving Print Language: Chinese Disposition Disposition: Home, Self Care
[2023-09-12] MEDS: hydrOXYzine 10 MG Tablet PO (07:17)
[2023-09-12] MEDS: Famotidine 20 MG Tablet PO (07:17)
[2023-09-12] MEDS: predniSONE 20 MG Tablet 60 MG PO (07:17)
== END 2023-09-12 07:32 | disposition home or self-care (01) ==
LOC: ED 07:24
PROVIDERS: Emergency Provider Emergency Medicine; Visit Provider Emergency Medicine
DX: L25.9 Unspecified contact dermatitis, unspecified cause (principal); J44.9 Chronic obstructive pulmonary disease, unspecified; F42.4 Excoriation (skin-picking) disorder; R03.0 Elevated blood-pressure reading, without diagnosis of hypertension; F17.210 Nicotine dependence, cigarettes, uncomplicated; F17.290 Nicotine dependence, other tobacco product, uncomplicated; F41.9 Anxiety disorder, unspecified
CPT/HCPCS: 99282